=== PATIENT | male | born 1945 | race Caucasian/White ===

== ENCOUNTER 2019-12-02 10:55 | Emergency (ER) | payer MEDICARE, OTHER ==
[~2019-12-02] VITALS: Ht 170.2 cm; Wt 110.5 kg
[2019-12-02] MEDS ORDERED: ACETAMINOPHEN 500 MG TABLET PO ONE ×4 (11:17→11:30)
--- NOTE | 2019-12-02 11:36 | PHYS DOC ---
Past History Past Medical History: Arthritis, CAD, CHF, COPD, CVA (left side deficit), Diabetes, GERD, High Cholesterol, Hypertension, Renal Disease, UTI Additional Past Medical Histor: Insomnia, Neurogenic bladder, neck injury Past Surgical History: Cervical Fusion Additional Past Surgical Histo: Bilateral shoulder surgery- rotator cuff, cardiac stent Smoking: Quit Greater Than 1 Year Alcohol Use: None Drug Use: None Adult General Chief Complaint Chief Complaint: FEVER HPI HPI 74-year-old male presents via EMS from assisted after being diverted from [facility] with report of cough, shortness of air, and subjective fever/chills 2 days. Patient denies travel. Denies known exposure to sick contacts. Denies any chest pain. Patient does report increased leg swelling. Reports history of supplemental oxygen use which he uses intermittently at 3 L. EMS reports upon arrival patient was hypoxic and required placement of supplemental O2. EMS also reports fever. Patient reports he last took Tylenol at 0400 this morning. Review of Systems Review of Systems Constitutional: Reports subjective fever and chills and malaise Eyes: Denies redness or eye pain HENT: Denies nasal congestion or sore throat Respiratory: Reports cough and shortness of breath Cardiovascular: Denies chest pain or palpitations GI: Denies abdominal pain, nausea, or vomiting : Denies dysuria or hematuria Musculoskeletal: Denies back pain; reports bilateral lower extremity edema Integument: Denies rash or skin lesions Neurologic: Denies headache, focal weakness or sensory changes Complete systems were reviewed and found to be within normal limits, except as documented in this note. Current Medications Current Medications Current Medications Medications (Trade) Dose Ordered Sig/David Start Time Stop Time Status Last Admin Dose Admin Acetaminophen (Tylenol) 500 mg STK-MED ONCE 12/02/19 11:17 12/02/19 11:18 MS Allergies Allergies Allergies Coded Allergies Type Severity Reaction Last Updated Verified No Known Drug Allergies 12/02/19 No Physical Exam Physical Exam Constitutional: Well developed, well nourished, no acute distress, non-toxic appearance HENT: Normocephalic, atraumatic, oropharynx dry Eyes: Conjunctiva normal, no discharge Neck: Normal range of motion, no tenderness, supple Cardiovascular: Heart rate tachycardic, regular rhythm Lungs & Thorax: Bilateral breath sounds diminished at bases, no wheezing Abdomen: Soft, no tenderness Skin: Warm, dry, no erythema, no rash Extremities: No tenderness, ROM intact, 3+ pitting edema BLE Neurologic: Alert and oriented. poor historian, left sided weakness- baseline (hx of neck injury and CVA) Psychologic: Affect normal, judgment normal Current Patient Data Vital Signs Vital Signs Date Time Temp Pulse Resp B/P (MAP) Pulse Ox O2 Delivery O2 Flow Rate FiO2 12/02/19 11:03 102.0 132 20 155/88 (110) 92 Room Air 3.0 EKG EKG @1106 Sinus tachycardia at 126bpm, NO ST elevation, incomplete RBBB, t wave inversion V1-V3 Radiology/Procedures Radiology/Procedures PROCEDURE: PORTABLE CHEST 1V EXAM: Chest, single view. HISTORY: Covid-19 concern COMPARISON: None. FINDINGS: A frontal view of the chest is obtained. There is elevation of the right hemidiaphragm. No infiltrate, pleural effusion or pneumothorax is seen. The heart is normal in size. IMPRESSION: Elevation of the right hemidiaphragm. Electronically signed by: Teresa Llanos MD (12/02/2019 11:36 AM) [facility] Course & Med Decision Making Course & Med Decision Making Pertinent Labs and Imaging studies reviewed. (See chart for details) Patient presents via EMS from assisted with report of shortness of breath with associated cough and fever. Given symptoms, concern for COVID-19. Patient placed in negative pressure room and PPE precautions utilized including N95 mask, face shield, yellow gown, foot covers, and double gloves. Febrile upon arrival. Fever addressed. EKG with sinus tachycardia. Labs obtained and posted to chart. WBC 14.6. Lactic acid WNL. BUN/Creat elevated to 53/2.1. Troponin elevated at 0.431. D-dimer significantly elevated at 15.5. Unable to obtain CTA chest with BUN/Creat level. ASA given. Heparin bolus/gtt initiated for possible PE (and cardiac issue). Rapid strep positive. UA with significant infection. Rapid influenza negative. Patient with drop in blood pressure. IVF hydration given with stabilization. Patient clinically looks dry despite BNP ~2900. COVID-19 pending. Empiric antibiotics given with Rocephin and Azithromycin. SIRS positive with tachycardia and elevated WBC. Source of infection with strep and UTI. Patient also hypotensive. Patient given initial 1 liter NS and was running 2nd liter at 100ml/hr. Patient continued to be hypotensive after initial liter. Order for patient to change 100ml/hr NS to bolus for additional liter. Based on IBW patient would require total of 2L for 30ml/hr based on IBW. Patient therefore mets criteria for Severe Sepsis. CXR without acute infiltration. Right hemidiaphragm elevated. Of note: patient was reported to have had a hospice consultation. It is unclear why and patient is unaware. Per [facility] paperwork patient is full code and not paperwork regarding hospice reported by RN at [facility]. Daughter (in [place]) reports that patient was put on hospice after recent cardiac stent placement (3 weeks ago) to get increased nursing help. Patient requiring critical care admission for further evaluation and treatment. Discussed with Dr. Mckeon (hospitalist) who reports no ICU capability at this time. Concern for respiratory and cardiac issues. Recommends transfer to [facility]. Discussed case with Dr. Melendrez (hospitalist) at [facility], who is in agreement with transfer for admission to CVC unit. Discussed findings and plan with patient, who acknowledges understanding and agreement. 1445- Patient dropped pressure despite fluid bolusing of 30ml/hr based on IBW (2L) and fluid from antibiotics. Patient with hx of CHF. Concern for further bolusing. Levophed therefore started. Patient now mets criteria for Septic Shock. Notified nursing poly area supervisor to notify [facility] regarding change of condition. (requiring levophed gtt). Dragon Disclaimer Dragon Disclaimer This electronic medical record was generated, in whole or in part, using a voice recognition dictation system. Departure Departure: Impression: Primary Impression: Septic shock Additional Impressions: Shortness of breath Fever Suspected COVID-19 virus infection Hypoxia Elevated troponin Strep pharyngitis UTI (urinary tract infection) Elevated d-dimer Hypotension Renal insufficiency Disposition: 05 TRANSFER OTHER ([facility]- Dr. Melendrez (hospitalist) accepting) Condition: GUARDED Referrals: PCP,BULL (PCP) Critical Care Time Critical care time was 30 minutes which includes time at bedside, spent in discussion of patient's care with specialists and/or family members, with interpretation of laboratory and/or radiological studies and is exclusive of procedures. Sepsis Assessment Date and Time of Assessment Date: Dec 02, 2019 Time: 13:55 Fluid Challenge: Is the fluid challenge complet: No IBW Target Volume Used: Yes BMI > 30: Yes Vital Signs Vital Signs Vital Signs Date Time Temp Pulse Resp B/P (MAP) Pulse Ox O2 Delivery O2 Flow Rate FiO2 12/02/19 13:07 111 20 93/50 (64) 99 Nasal Cannula 3.0 12/02/19 12:45 100.0 Temperature Source: Oral Respirations Respiratory Effort: Normal Respiratory Pattern: Normal Cardiovascular Pulse Rhythm: Irregular (Tachycardia at 106bpm) Heart: S1 and S2 normal Lung Sounds Breath Sounds: Diminished Capillary Refill Capillary Refill: Rt Hand < 3 seconds Peripheral Pulse Pulse Location: Radial Pulse Strength: Normal (2+) Pulse Assessment Method: Palpation Integumentary Skin: Warm, Dry Skin Moisture: Dry Skin Turgor: Normal Skin Color: warm, dry, edema (BLE) Fingernail Color: WNL Problem Qualifiers Additional Impressions: Fever Fever type: unspecified Qualified Codes: R50.9 - Fever, unspecified UTI (urinary tract infection) Urinary tract infection type: acute cystitis Hematuria presence: without hematuria Qualified Codes: N30.00 - Acute cystitis without hematuria Hypotension Hypotension type: unspecified hypotension type Qualified Codes: I95.9 - Hypotension, unspecified TREVINOANDRE DO Dec 02, 2019 11:36
--- NOTE | 2019-12-02 11:39 | RAD ---
EXAM: Chest, single view. HISTORY: Covid-19 positive. COMPARISON: None. FINDINGS: A frontal view of the chest is obtained. There is elevation of the right hemidiaphragm. No infiltrate, pleural effusion or pneumothorax is seen. The heart is normal in size. IMPRESSION: Elevation of the right hemidiaphragm. Electronically signed by: Teresa Llanos MD (12/02/2019 11:36 AM) [facility]
[2019-12-02] MEDS ORDERED: AZITHROMYCIN 500 MG in IV NORMAL SALINE 250ML 250 ML IV ONE (11:45)
[2019-12-02] MEDS ORDERED: IV NORMAL SALINE 1,000ML 1,000 ML IV ONE ×2 (11:45→13:00)
[2019-12-02 11:53] LABS: BASO % 0 % (0-3); EOS % 0 % (0-3); HEMATOCRIT 32.2 % (39.0-53.0); HEMOGLOBIN 9.6 g/dL (13.0-17.5); LYMPH # 1.3 x10^3/uL (1.0-4.8); LYMPH % 9 % (24-48); MEAN CORPUSCULAR HEMOGLOBIN 27 pg (25-35); MEAN CORPUSCULAR HGB CONC 30 g/dL (31-37); MEAN CORPUSCULAR VOLUME 89 fL (79-100); MONO # 1.2 x10^3/uL (0.0-1.1); MONO % 8 % (0-9); NEUT % 83 % (31-73); PLATELET COUNT 237 x10^3/uL (140-400); RED BLOOD COUNT 3.62 x10^6/uL (4.30-5.70); RED CELL DISTRIBUTION WIDTH 18.2 % (11.5-14.5); WHITE BLOOD COUNT 14.5 x10^3/uL (4.0-11.0)
[2019-12-02 12:00] LABS: CALCIUM 8.3 mg/dL (8.5-10.1); CREATININE 2.1 mg/dL (0.7-1.3); GFR 31.1; POTASSIUM 4.8 mmol/L (3.5-5.1)
[2019-12-02] MEDS ORDERED: ASPIRIN CHEWABLE 81 MG TABLET. ONE (12:13)
[2019-12-02 12:14] LABS: INFLUENZA A PATIENT NEGATIVE (NEGATIVE); INFLUENZA B PATIENT NEGATIVE (NEGATIVE)
[2019-12-02 12:15] LABS: ALBUMIN 2.1 g/dL (3.4-5.0); ALBUMIN/GLOBULIN RATIO 0.5 (1.0-1.7); MAGNESIUM 2.1 mg/dL (1.8-2.4); TOTAL BILIRUBIN 0.4 mg/dL (0.2-1.0); TOTAL PROTEIN 6.3 g/dL (6.4-8.2)
[2019-12-02] MEDS ORDERED: ASPIRIN 325 MG TABLET PO ONE (12:15)
[2019-12-02] MEDS ORDERED: ASPIRIN CHEWABLE 81 MG TABLET. PO ONE (12:15)
[2019-12-02 12:21] LABS: BACTERIA,URINE MOD /HPF (0-FEW); BILIRUBIN,URINE NEG (NEG); CLARITY,URINE TURBID; COLOR,URINE YELLOW; GLUCOSE,URINE NEG (NEG); NITRITE,URINE POS (NEG); SQUAMOUS EPITHELIAL CELL,UR OCC /LPF; UROBILINOGEN,URINE 0.2 mg/dL (0.2 mg/dL); WBC,URINE >40 /HPF (0-4)
[2019-12-02] MEDS ORDERED: HEPARIN 25,000UTS/250ML PREMIX 250 ML IV SCH (12:45)
[2019-12-02] MEDS ORDERED: HEPARIN for IV BOLUS 10,000 UNIT/10 ML VIAL. IV ONE (12:45)
[2019-12-02] MEDS ORDERED: HEPARIN 25,000UTS/250ML PREMIX 250 ML IV PRN (12:45)
[2019-12-02] MEDS ORDERED: HEPARIN for IV BOLUS 10,000 UNIT/10 ML VIAL. ONE (12:46)
[2019-12-02] MEDS ORDERED: HEPARIN 25,000UTS/250ML PREMIX 250 ML IV ONE (12:46)
[2019-12-02] MEDS ORDERED: HEPARIN for IV BOLUS 10,000 UNIT/10 ML VIAL. IV PRN ×3 (14:30)
[2019-12-02 14:35] LABS: % LYMPHS 5 % (24-48); % MONOS 10 % (0-10); % SEGS 85 % (35-66)
[2019-12-02 14:36] LABS: PLT ESTIMATE ADEQUATE (ADEQUATE)
[2019-12-02] MEDS ORDERED: NOREPINEPHRINE BITARTRATE 8 MG in IV DEXTROSE 5% 250 ML IV PRN (15:00)
[2019-12-02 17:19] VITALS: BP 121/54
--- NOTE | 2019-12-05 10:55 | EKG ---
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
== END 2019-12-02 18:10 | disposition short-term general hospital (02) ==
LOC: ER 10:55
DX: A41.9 Sepsis, unspecified organism (principal); R65.21 Severe sepsis with septic shock; Z03.818 Encounter for observation for suspected exposure to other biological agents ruled out; R79.89 Other specified abnormal findings of blood chemistry; J02.0 Streptococcal pharyngitis; N39.0 Urinary tract infection, site not specified; I95.9 Hypotension, unspecified; N28.9 Disorder of kidney and ureter, unspecified; B95.0 Streptococcus, group A, as the cause of diseases classified elsewhere; M19.90 Unspecified osteoarthritis, unspecified site; I25.10 Atherosclerotic heart disease of native coronary artery without angina pectoris; J44.9 Chronic obstructive pulmonary disease, unspecified; E11.9 Type 2 diabetes mellitus without complications; K21.9 Gastro-esophageal reflux disease without esophagitis; E78.00 Pure hypercholesterolemia, unspecified; I11.0 Hypertensive heart disease with heart failure; I50.9 Heart failure, unspecified; Z87.440 Personal history of urinary (tract) infections; Z87.891 Personal history of nicotine dependence
CPT/HCPCS: 36415; 51702; 71045; 80053; 81001; 82553; 83605; 83615; 83690; 83735; 83880; 84145; 84484; 85007; 85025; 85379; 85610; 85730; 87040; 87077; 87086; 87186; 87205; 87635; 87804; 87880; 93005; 96365; 96366; 96367; 96368; 96376; 99291; J0456; J0696; J1644; J7050; J7030

== ENCOUNTER 2020-01-30 09:19 | Inpatient (IN) | payer MEDICARE, OTHER ==
[~2020-01-30] VITALS: Ht 182.9 cm; Wt 112.2 kg
[2020-01-30] MEDS ORDERED: cefTRIAXone SODIUM 1 GM VIAL ONE (09:42)
[2020-01-30] MEDS ORDERED: IV NORMAL SALINE 50ML 50 ML ONE (09:42)
[2020-01-30 09:51] LABS: BGAS PH 7.34 (7.35-7.46)
[2020-01-30 10:30] LABS: BASO % 1 % (0-3); EOS % 0 % (0-3); MEAN CORPUSCULAR HEMOGLOBIN 24 pg (25-35); MEAN CORPUSCULAR HGB CONC 29 g/dL (31-37); MONO # 0.7 x10^3/uL (0.0-1.1); MONO % 11 % (0-9); RED CELL DISTRIBUTION WIDTH 19.5 % (11.5-14.5); WHITE BLOOD COUNT 6.4 x10^3/uL (4.0-11.0)
[2020-01-30 10:43] LABS: CALCIUM 9.5 mg/dL (8.5-10.1); CREATININE 2.3 mg/dL (0.7-1.3); POTASSIUM 5.6 mmol/L (3.5-5.1)
[2020-01-30 10:49] LABS: ALBUMIN 2.6 g/dL (3.4-5.0); ALBUMIN/GLOBULIN RATIO 0.5 (1.0-1.7); C REACTIVE PROTEIN 26.5 mg/L (0-3.3); TOTAL BILIRUBIN 0.1 mg/dL (0.2-1.0); TOTAL PROTEIN 7.6 g/dL (6.4-8.2)
--- NOTE | 2020-01-30 11:21 | RAD ---
INDICATION: Reason: sepsis / Spl. Instructions: / History: COMPARISON: December 02, 2019 FINDINGS: Single view of chest obtained. Hypoexpanded exam with elevation of the right hemidiaphragm again seen. Some limitation at the left lung base secondary to the overlying cardiac silhouette obscuring but no new region of consolidation in visualized portions of the lungs. IMPRESSION: * Similar exam compared to prior with repeat demonstration of elevated right hemidiaphragm. Electronically signed by: Edwardo Quevedo MD (01/30/2020 11:18 AM) [id number]
[2020-01-30] MEDS ORDERED: ALBUTEROL SULFATE 2.5 MG/3 ML NEBU. NEB ONE (11:45)
[2020-01-30] MEDS ORDERED: FUROSEMIDE 40 MG/4 ML VIAL IVP ONE (11:45)
--- NOTE | 2020-01-30 12:05 | PHYS DOC ---
Past History Past Medical History: Arthritis, CAD, CHF, COPD, CVA, Diabetes, GERD, High Cholesterol, Hypertension, Renal Disease, UTI Additional Past Medical Histor: Insomnia, Neurogenic bladder, neck injury Past Surgical History: Cervical Fusion Additional Past Surgical Histo: Bilateral shoulder surgery- rotator cuff, cardiac stent Smoking: Quit Greater Than 1 Year Alcohol Use: None Drug Use: None Adult General Chief Complaint Chief Complaint: ALTERED MENTAL STATUS HPI HPI Patient is a 74 year old male who presents with altered mental status. Report from skilled nursing is that at 7 AM this morning they tried to wake the patient up and he was very lethargic and difficult to wake. They then sent him here. Reportedly he was okay yesterday. There has been coronavirus cases at his nursing facility. He is supposed to be on oxygen all the time, however it is unclear at this time why. Patient is unable to provide any history. Review of Systems Review of Systems Unable to obtain due to altered mental status Current Medications Current Medications Current Medications Medications (Trade) Dose Ordered Sig/David Start Time Stop Time Status Last Admin Dose Admin Albuterol Sulfate (Ventolin) 2.5 mg 1X ONCE 01/30/20 11:45 01/30/20 11:46 DC Ceftriaxone Sodium 1 gm/ Sodium Chloride 50 ml @ 100 mls/hr 1X ONCE 01/30/20 10:25 01/30/20 10:54 DC 01/30/20 10:35 100 MLS/HR Ceftriaxone Sodium (Rocephin) 1 gm STK-MED ONCE 01/30/20 09:42 01/30/20 09:42 DC Furosemide (Lasix) 40 mg 1X ONCE 01/30/20 11:45 01/30/20 11:46 DC Sodium Chloride 50 ml @ As Directed STK-MED ONCE 01/30/20 09:42 01/30/20 09:42 DC Allergies Allergies Allergies Coded Allergies Type Severity Reaction Last Updated Verified No Known Drug Allergies 01/30/20 No Physical Exam Physical Exam Constitutional: Well developed, well nourished, lethargic, ill-appearing HEENT: Normocephalic, atraumatic, oropharynx moist, EOMI, PERRL, no drainage from eyes, normal conjunctiva Neck: Supple, normal range of motion, no stridor Cardiovascular: Tachycardic, 2+ radial pulses bilaterally, bilateral lower edema Respiratory: Decreased breath sounds bilaterally, shallow breathing, diffuse crackles Abdomen: Soft, nontender, nondistended, no masses Skin: Warm, dry, intact Extremities: No obvious deformities Neurologic: GCS 9, limited motion of all 4 extremities, response to pain in all 4 extremities Current Patient Data Vital Signs Vital Signs Date Time Temp Pulse Resp B/P (MAP) Pulse Ox O2 Delivery O2 Flow Rate FiO2 01/30/20 11:00 99 15 160/83 (108) 99 Nasal Cannula 2.0 01/30/20 09:20 99.2 Lab Results Laboratory Tests Test 01/30/20 09:27 01/30/20 09:37 01/30/20 10:00 Glucose (Fingerstick) 137 mg/dL (70-99) H Blood pH 7.34 (7.35-7.46) L Blood Gas PCO2 62 mmHg (35-46) *H Blood Gas PO2 92 mmHg (71-100) Blood Gas HCO3 33 mmol/L (21-28) H Arterial Bld O2 Saturation (Calc) 96 % (92-99) FiO2 28 % White Blood Count 6.4 x10^3/uL (4.0-11.0) Red Blood Count 4.00 x10^6/uL (4.30-5.70) L Hemoglobin 9.6 g/dL (13.0-17.5) L Hematocrit 32.8 % (39.0-53.0) L Mean Corpuscular Volume 82 fL (79-100) Mean Corpuscular Hemoglobin 24 pg (25-35) L Mean Corpuscular Hemoglobin Concent 29 g/dL (31-37) L Red Cell Distribution Width 19.5 % (11.5-14.5) H Platelet Count 357 x10^3/uL (140-400) Neutrophils (%) (Auto) 68 % (31-73) Lymphocytes (%) (Auto) 20 % (24-48) L Monocytes (%) (Auto) 11 % (0-9) H Eosinophils (%) (Auto) 0 % (0-3) Basophils (%) (Auto) 1 % (0-3) Neutrophils # (Auto) 4.4 x10^3uL (1.8-7.7) Lymphocytes # (Auto) 1.3 x10^3/uL (1.0-4.8) Monocytes # (Auto) 0.7 x10^3/uL (0.0-1.1) Eosinophils # (Auto) 0.0 x10^3/uL (0.0-0.7) Basophils # (Auto) 0.0 x10^3/uL (0.0-0.2) Sodium Level 138 mmol/L (136-145) Potassium Level 5.6 mmol/L (3.5-5.1) H Chloride Level 103 mmol/L (98-107) Carbon Dioxide Level 31 mmol/L (21-32) Anion Gap 4 (6-14) L Blood Urea Nitrogen 34 mg/dL (8-26) H Creatinine 2.3 mg/dL (0.7-1.3) H Estimated GFR (Cockcroft-Gault) 28.0 BUN/Creatinine Ratio 15 (6-20) Glucose Level 125 mg/dL (70-99) H Calcium Level 9.5 mg/dL (8.5-10.1) Total Bilirubin 0.1 mg/dL (0.2-1.0) L Aspartate Amino Transferase (AST) 71 U/L (15-37) H Alanine Aminotransferase (ALT) 49 U/L (16-63) Alkaline Phosphatase 165 U/L (46-116) H Lactate Dehydrogenase 327 U/L (85-227) H Creatine Kinase 213 U/L (39-308) Troponin I Quantitative 1.910 ng/mL (0-0.055) H C-Reactive Protein 26.5 mg/L (0-3.3) H IL-Hqs-T-Type Natriuretic Peptide 1980 pg/mL (0-124) H Total Protein 7.6 g/dL (6.4-8.2) Albumin 2.6 g/dL (3.4-5.0) L Albumin/Globulin Ratio 0.5 (1.0-1.7) L EKG EKG [] Radiology/Procedures Radiology/Procedures [] Course & Med Decision Making Course & Med Decision Making Pertinent Labs and Imaging studies reviewed. (See chart for details) Patient is 74-year-old male who presents to the emergency room with altered m ental status. Upon arrival to the emergency room patient was a GCS of 9. ABG was done which shows a PCO2 of 62 suggesting retention. This is likely secondary to patient not taking deep breaths. There is no report that the patient was given any medications this morning that would make him lethargic. Patient does have thick sputum production which could be related to pneumonia. It is also possible that he may have heart failure. Code sepsis work-up was ordered. Patient was a very difficult stick and despite multiple attempts to get blood, blood cultures could not be obtained. Patient became more awake and started to refuse any further sticks. He also refused a straight cath. He refused to wear BiPAP. He intermittently refused to wear oxygen. He is confused at this time and is unable to make full decisions. He does not know where he is and what year it is, but is unable to tell us what is going on at this time. Patient has an elevated troponin. EKG does not show a STEMI. He does have some PVCs, T wave inversions diffusely, and an incomplete right bundle branch block fluids will be withheld at this time. He will be given Rocephin and Lasix. I discussed the case with Dr. Pack who will admit the patient. Dragon Disclaimer Dragon Disclaimer This electronic medical record was generated, in whole or in part, using a voice recognition dictation system. Departure Departure: Impression: Primary Impression: Hypercapnic respiratory failure Additional Impressions: Elevated troponin Altered mental status Disposition: ADMITTED INPATIENT Condition: STABLE Referrals: JOANNA BACA (PCP) Problem Qualifiers MARKUS MELTON MD Jan 30, 2020 12:05
--- NOTE | 2020-01-30 12:44 | EKG ---
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
[2020-01-30 13:19] VITALS: BP 130/65
[2020-01-30 13:48] VITALS: BP 105/50
[2020-01-30] MEDS ORDERED: ACET325T21 PO (13:50)
[2020-01-30] MEDS ORDERED: BUDE10.22 IH (13:50)
[2020-01-30] MEDS ORDERED: POLY2500 PO (13:50)
[2020-01-30] MEDS ORDERED: TAMS0.4C97 PO (13:50)
[2020-01-30] MEDS ORDERED: OXYC-325 PO ×2 (13:50)
[2020-01-30] MEDS ORDERED: BISA10SU4 RC (13:50)
[2020-01-30] MEDS ORDERED: APIX5TAB3 PO (13:50)
[2020-01-30] MEDS ORDERED: KETO120S4 TP (13:50)
[2020-01-30] MEDS ORDERED: BACL10TA PO (13:50)
[2020-01-30] MEDS ORDERED: GUAI-519 PO (13:50)
[2020-01-30] MEDS ORDERED: METO50TA6 PO (13:50)
[2020-01-30] MEDS ORDERED: PATI8.4P PO (13:50)
[2020-01-30] MEDS ORDERED: FURO80TA72 PO (13:50)
[2020-01-30] MEDS ORDERED: VITA1TAB31 PO (13:50)
[2020-01-30] MEDS ORDERED: INSU100V13 SQ (13:50)
[2020-01-30] MEDS ORDERED: INSU100I17 SQ (13:50)
[2020-01-30] MEDS ORDERED: DILT180C2 PO (13:50)
[2020-01-30] MEDS ORDERED: LIDO1ADH44 TP (13:50)
[2020-01-30] MEDS ORDERED: ALBU2.5V8 IH (13:50)
[2020-01-30] MEDS ORDERED: SIME80TA14 PO (13:50)
[2020-01-30] MEDS ORDERED: LIDO700A21 TP (13:50)
[2020-01-30] MEDS ORDERED: DICL100G28 TP (13:50)
[2020-01-30] MEDS ORDERED: MELA3TAB4 PO (13:50)
[2020-01-30] MEDS ORDERED: DOCU100C28 PO (13:50)
[2020-01-30] MEDS ORDERED: ATOR20TA58 PO (13:50)
[2020-01-30] MEDS ORDERED: ASPI-630 PO (13:50)
[2020-01-30] MEDS ORDERED: CETI10TA16 PO (13:50)
[2020-01-30] MEDS ORDERED: QUET50TA5 PO (13:50)
[2020-01-30] MEDS ORDERED: GABA-586 PO (13:50)
[2020-01-30 14:45] VITALS: BP 147/69
[2020-01-30] MEDS ORDERED: CALCIUM GLUCONATE 1,000 MG in IV NORMAL SALINE 100ML 100 ML IV ONE (15:15)
[2020-01-30] MEDS ORDERED: DEXTROSE 50% 25 GM / 50ML DISP.SYRIN. IV PRN (15:15)
[2020-01-30] MEDS ORDERED: INSULIN LISPRO 300 UNITS/3 ML VIAL. SQ PRN (15:15)
[2020-01-30] MEDS ORDERED: IV DEXTROSE 5 %-0.2 % NACL 1,000 ML IV SCH (15:15)
[2020-01-30] MEDS ORDERED: SODIUM BICARB ADULT 8.4% 50 MEQ/50 ML DISP.SYRIN. IV ONE (15:15)
--- NOTE | 2020-01-30 16:00 | RAD ---
CT CHEST WO CONTRAST INDICATION: Reason: ALTERED MENTAL STATUS, SEPSIS / Spl. Instructions: / History: . COMPARISON STUDY: Radiograph 01/30/2020. TECHNIQUE: Unenhanced axial images were obtained through the lungs and upper abdomen. Coronal and sagittal multiplanar reconstructions were also obtained. RS compliance statement: One or more of the following individualized dose reduction techniques were utilized for this examination: 1. Automated exposure control 2. Adjustment of the mA and/or kV according to patient size 3. Use of iterative reconstruction technique FINDINGS: Lungs and Airways: Asymmetric elevation of the right hemidiaphragm. Right basilar relaxation atelectasis. Bibasilar dependent and subsegmental atelectasis. Normal central airways. Pleura: The pleural spaces are normal. Heart and Mediastinum: The visualized thyroid gland is normal in size and attenuation. No axillary or supraclavicular lymphadenopathy. No mediastinal, hilar or retrocrural lymphadenopathy. Cardiomegaly. Coronary artery atherosclerotic disease. No pericardial effusion. Atherosclerosis of the thoracic aorta. Abdomen: The visualized abdominal organs demonstrate no abnormality. Bones and Soft Tissues: Degenerative changes of the spine. IMPRESSION: No pulmonary mass or consolidation. No thoracic lymphadenopathy. Electronically signed by: Amado Guillermo MD (01/30/2020 3:57 PM) [facility]
--- NOTE | 2020-01-30 16:00 | RAD ---
PQRS Compliance Statement: One or more of the following individualized dose reduction techniques were utilized for this examination: 1. Automated exposure control 2. Adjustment of the mA and/or kV according to patient size 3. Use of iterative reconstruction technique CT head without contrast 01/30/2020 2:36 PM INDICATION: Altered mental status COMPARISON: None available TECHNIQUE: Multiple axial CT images of the head were obtained from skull base through the vertex without intravenous contrast. FINDINGS: Head: Ventricles, sulci and basal cisterns are prominent compatible with mild generalized cerebral volume loss.. Low-attenuation in the periventricular white matter is suggestive of chronic small vessel ischemic changes. There is no hydrocephalus. Quach-white matter differentiation is normal. There is no acute intracranial hemorrhage. There is no mass, mass effect or midline shift. Posterior fossa is normal in appearance. Chronic appearing prominence of the bifrontal extra-axial spaces. Visualized portions of the orbits are normal. Air-fluid level is noted in the sphenoid sinus. Mastoid air cells are well aerated. Scalp and calvaria are normal. IMPRESSION: No acute intracranial hemorrhage. Air-fluid level in the sphenoid sinus are present acute inflammatory changes associated with sinusitis. Mild general cerebral volume loss. Low-attenuation in the periventricular white matter is suggestive of chronic small vessel ischemic changes. Electronically signed by: Carmen Ohara MD (01/30/2020 3:57 PM) [id number]
[2020-01-30 16:32] LABS: TOTAL BILIRUBIN 0.1 mg/dL (0.2-1.0)
[2020-01-30 16:57] VITALS: BP 145/74
[2020-01-30 16:58] LABS: HEMATOCRIT 29.9 % (39.0-53.0); HEMOGLOBIN 8.8 g/dL (13.0-17.5); LYMPH % 31 % (24-48); MEAN CORPUSCULAR VOLUME 81 fL (79-100); NEUT % 57 % (31-73); PLATELET COUNT 342 x10^3/uL (140-400); RED BLOOD COUNT 3.68 x10^6/uL (4.30-5.70)
[2020-01-30 16:59] LABS: BASO # 0.1 x10^3/uL (0.0-0.2); NEUT # 3.7 x10^3uL (1.8-7.7)
[2020-01-30 17:05] LABS: CALCIUM 9.1 mg/dL (8.5-10.1); CREATININE 2.3 mg/dL (0.7-1.3); POTASSIUM 5.2 mmol/L (3.5-5.1)
[2020-01-30 17:10] LABS: ALBUMIN 2.5 g/dL (3.4-5.0); ALBUMIN/GLOBULIN RATIO 0.6 (1.0-1.7)
[2020-01-30] MEDS ORDERED: PIPERACILLIN/TAZOBACTAM 2.25 GM in IV NORMAL SALINE 50ML 50 ML IV SCH (18:00)
--- NOTE | 2020-01-30 18:22 | HP ---
ADMIT DATE: 01/30/2020 HISTORY OF PRESENT ILLNESS: The patient is a 74-year-old -[employer] male patient, a resident at [facility], who was brought to the Emergency Room of [facility] with altered mental status. As per senior living staff, they have tried to wake him up at 7:00 in the morning, but the patient was very lethargic and difficult to wake up. Therefore, they sent him to the Emergency Room. Reportedly, the patient was okay yesterday. There has been coronavirus cases at this nursing facility. He is supposed to be on oxygen all the time; however, it is unclear at this time why the patient is unable to provide any history. He was evaluated in the Emergency Room and has had lab work including a CBC, a comprehensive metabolic profile, which showed that he has acute on chronic kidney injury, hyperkalemia. His BNP was high at 1980. His first troponin was 1.910. His blood gases showed that he has acute hypercapnic respiratory failure. He had a chest x-ray, which showed that the patient has hyperexpanded exam with elevation of the right hemidiaphragm again seen, some limitation at the left lung base secondary to overlying cardiac silhouette obscuring, but no new region of consolidation in the visualized portion of the left lung. The patient was treated with IV Lasix, ceftriaxone and was admitted for further evaluation and treatment. The patient was unresponsive when I saw him and was clearly very congested; however, he did not tolerate BiPAP machine and he has also a mouth breather, does not tolerate oxygen by nasal cannula or by Ventimask. PAST MEDICAL HISTORY: Significant for apparently a history of acute on chronic respiratory failure with hypoxia and hypercapnia. He has a history of urinary tract infection, dysphagia. He has type 2 diabetes mellitus with hyperglycemia, for which he is on insulin, chronic diastolic congestive heart failure, chronic kidney disease, generalized edema, quadriplegia that is incomplete at C1-C4. He has hyperlipidemia, chronic pain syndrome, hypertension, gastroesophageal reflux disease, chronic constipation, neurogenic bowel and osteoarthritis. He is also known to have cervical spine stenosis, generalized muscle weakness and he has also rotator cuff tear on both right and left shoulder, neuromuscular dysfunction of bladder and enlarged prostate, abnormal gait and mobility and unspecified injury at C3 level of the cervical spinal cord. He has recent history of psychotic disorder with delusion due to known physiological condition and lack of coordination. PAST SURGICAL HISTORY: Significant for cervical spine fusion, has also bilateral rotator cuff surgery and coronary artery disease, status post stent deployment. FAMILY HISTORY: Unobtainable. SOCIAL HISTORY: He is currently a senior living resident. He apparently quit smoking a year ago. Does not drink alcohol or use recreational drugs. REVIEW OF SYSTEMS: Unobtainable. PHYSICAL EXAMINATION: GENERAL: When I saw him this afternoon, he was resting slightly propped up in bed, in no apparent respiratory distress. He was pale, but no jaundice, cyanosis or thyromegaly. No jugular venous distention. Generalized anasarca. VITAL SIGNS: His heart rate was 90, blood pressure was 105/50, temperature was 98.9, respiratory rate was 20, and oxygen saturation was 99% on 6 liters of oxygen. HEAD, EYES, EARS, NOSE AND THROAT: Showed normocephalic, atraumatic. NECK: Supple. HEART: Showed normal first and second heart sounds. No gallop or murmur. CHEST: Showed central trachea, equal bilateral expansion, air entry expands with crepitation bilaterally posteriorly. ABDOMEN: Distended, soft, nontender. NEUROLOGIC: He is encephalopathic, does not open his eyes spontaneously nor does he respond to verbal or painful stimuli. LABORATORY DATA: His lab work when I saw him showed a white cell count of 6400, hemoglobin 9.6, hematocrit 32, MCV 82 and platelet count of 357,000. Serum sodium was 138, potassium 5.6, chloride 103, bicarbonate 31, anion gap of 4, BUN 34, creatinine 2.3, estimated GFR was 28 mL per minute, his glucose 125, calcium was 9.5. Total bilirubin is normal as well as ALT. AST and alkaline phosphatase were slightly elevated. LDH was 327. CK was 213. Troponin was 1.910 and C-reactive protein was 26.5. B natriuretic peptide was 1980. Total protein was 7.6, albumin 2.6. His blood gases showed a pH of 7.34, pCO2 of 62, pO2 of 92, bicarbonate 33 and oxygen saturation was 96% on FiO2 of 28%. His chest x-ray showed that the patient has hyperexpanded exam with elevation of the right hemidiaphragm again seen, some limitation at the left lung base secondary to overlying cardiac silhouette that was obscuring, but no new region of consolidation in the visualized portions of the lungs. In summary, this is a 74-year-old -[employer] male patient who was admitted with altered mental status. Initial exam showed that he has hypercapnic respiratory failure, altered mental status, hyperkalemia, acute on chronic kidney injury, the patient ____ the BiPAP. He has also a mouth breather, although his oxygenation is good. He continued to be very congested and I do not have really reason for why he is unresponsive. He is currently on following medications at [facility]. He is on Levemir 20 units 2 times a day. He is on Lidoderm patch to the left upper extremity, shoulder topically on for 12 hours and off for 12 hours. He is on melatonin 3 mg, he takes 2 tablets by mouth ____ at bedtime. He is on metoprolol tartrate 50 mg twice a day. He is on Mylanta 30 mL by mouth every 12 hours. He is on NovoLog FlexPen, he takes 12 units before meals. He is on NovoLog, ____ sliding scale. He is also on Cardizem CD extended release, he takes 180 mg once a day and cetirizine 10 mg once a day, diclofenac sodium gel 1% apply 4 grams transdermally every 8 hours. He is on Colace 100 mg twice a day, gabapentin 600 mg 3 times a day, Cheratussin syrup (guaifenesin) 10 mL every 4 hours, glucose gel 15 grams 1 vial by mouth every 4 hours as needed, ketoconazole shampoo 2% applied to scalp topically one time a day every Tuesday, , Tuesday. He is on Lasix 80 mg 1 tablet by mouth one time a day related to acute diastolic congestive heart failure. He is on oxycodone/acetaminophen 5/325 one tablet by mouth at bedtime. He is also on oxycodone/APAP every 6 hours. He is also on polyethylene glycol 17 grams once a day, Seroquel 50 mg 1 tablet at bedtime. He is also on simethicone 80 mg 1 tablet by mouth 4 times a day, tamsulosin 0.4 mg 1 capsule by mouth 1 time a day and he is on Veltassa packet 8.4 grams 1 packet by mouth 2 times a day for hyperkalemia. He is also on vitamin D, ergocalciferol 3000 units once a day. In summary, this is a 74-year-old -[employer] [facility] male patient who was admitted with altered mental status, the cause of which is not very clear. The patient is on Levemir insulin. He takes also NovoLog insulin. He is also on oxycodone. PLAN: We will arrange for him to have a CT scan of the head without contrast, CT scan of the chest without contrast. We will repeat all his lab work again this afternoon and we will decide on further management according to the findings. LUIS CARVER MD DR: LEILANI/wendy JOB#: [id number] / [id number]
[2020-01-30] MEDS ORDERED: ASPIRIN CHEWABLE 81 MG TABLET. PO ONE (18:45)
[2020-01-30 19:30] VITALS: BP 141/71
== END 2020-01-30 19:40 | disposition short-term general hospital (02) | DRG 280 ==
LOC: ER 09:19 → 1 SOUTH 11:40 → ER 12:15 → 1 SOUTH 12:43
PROVIDERS: ADMIT Internal Medicine; ATTEND Internal Medicine
DX: I13.0 Hypertensive heart and chronic kidney disease with heart failure and stage 1 through stage 4 chronic kidney disease, or unspecified chronic kidney disease (principal); G93.41 Metabolic encephalopathy; I21.4 Non-ST elevation (NSTEMI) myocardial infarction; J96.02 Acute respiratory failure with hypercapnia; G82.50 Quadriplegia, unspecified; I50.33 Acute on chronic diastolic (congestive) heart failure; N17.9 Acute kidney failure, unspecified; I25.10 Atherosclerotic heart disease of native coronary artery without angina pectoris; J44.9 Chronic obstructive pulmonary disease, unspecified; E11.22 Type 2 diabetes mellitus with diabetic chronic kidney disease; E78.00 Pure hypercholesterolemia, unspecified; N18.9 Chronic kidney disease, unspecified; E78.5 Hyperlipidemia, unspecified; E87.5 Hyperkalemia; G89.4 Chronic pain syndrome; N40.0 Benign prostatic hyperplasia without lower urinary tract symptoms; Z20.828 Contact with and (suspected) exposure to other viral communicable diseases; Z99.81 Dependence on supplemental oxygen; Z98.1 Arthrodesis status; Z95.5 Presence of coronary angioplasty implant and graft; Z87.891 Personal history of nicotine dependence; Z87.440 Personal history of urinary (tract) infections; Z86.73 Personal history of transient ischemic attack (TIA), and cerebral infarction without residual deficits
CPT/HCPCS: 36415; 70450; 71045; 71250; 80053; 82550; 82803; 82947; 83605; 83615; 83880; 84145; 84484; 85025; 86140; 87040; 87070; 87205; 87641; 93005; 94640; 96365; 96366; 96375; J0610; J0696; J1815; J1940; J2543; 99285-25; J7613; U0003-CS

== ENCOUNTER 2020-09-01 20:30 | Observation (INO) | payer MEDICARE ==
[~2020-09-01] VITALS: Ht 182.9 cm; Wt 105.0 kg
[~2020-09-01 20:30] MED LIST: ACET325T21 PO; ALBU2.5V8 IH; APIX5TAB3 PO; ASPI-630 PO; ATOR20TA58 PO; BACL10TA PO; BISA10SU4 RC; BUDE10.22 IH; CETI10TA16 PO; DICL100G28 TP; DILT180C2 PO; DOCU100C28 PO; FURO80TA72 PO; GABA-586 PO; GUAI-519 PO; INSU100I17 SQ; INSU100V13 SQ; KETO120S4 TP; LIDO1ADH44 TP; LIDO700A21 TP; MELA3TAB4 PO; METO50TA6 PO; OXYC-325 PO; PATI8.4P PO; POLY2500 PO; QUET50TA5 PO; SIME80TA14 PO; TAMS0.4C97 PO; VITA1TAB31 PO
--- NOTE | 2020-09-01 20:35 | PHYS DOC ---
Past History Past Medical History: Anemia, Arthritis, CAD, CHF, COPD, CVA, Diabetes, GERD, High Cholesterol, Hypertension, Renal Disease, UTI Additional Past Medical Histor: Insomnia, Neurogenic bladder, neck injury Past Surgical History: Cervical Fusion Additional Past Surgical Histo: Bilateral shoulder surgery- rotator cuff, cardiac stent Smoking: Quit Greater Than 1 Year Alcohol Use: None Drug Use: None General Adult HPI: HPI: ".. I don't know... I was asleep... they were rubbing ... my chest... to wake me up... I don't know.... I ve been coughing... more.. just hard to get it up... . I am tired...I don't know...".." Been more weak...".."They said .. I had a fever..." Patient is a 75 year old male who presents with above hx and complaints of CHF, fatigue, weakness,fever, cough with productive sputum, mental status change, per detention. Pt. on chronic oxygen 2 lt when asleep. Patient has been a resident of [facility] since 02-04-2020. Patient's primary at the detention is Dr. Brittni Baca. No recent changes in medications. There are other patients at the detention that have tested COVID +. Patient has had a flu vaccination and Pneumovax. P atient has past medical history of acute on chronic respiratory failure hypoxia and hypercapnia-cause of last admission in 02/15. Patient has history of chronic atelectasis, elevated Rt. diaphragm , chronic constipation, dysphagia, generalized edema, insomnia, muscle weakness, neuro muscular dysfunction of bladder, gait and mobility issues, lack coordination, history of urinary tract infections, quadriplegic from the C1-C4 traumatic injury (-s/p surgical stablization,), spinal stenosis, central cord lesion-trauma, rotator cuff tear and rupture, acute on chronic diastolic congestive heart failure episodes, chronic renal disease stage II, prostate hypertrophic changes, essential hypertension, gastroesophageal reflux, hyperlipidemia, diabetes, neurogenic bowel, osteoarthritis, chronic pain, chronic muscle spasms, psychotic disorder with delusions, seborrheic capitis, diabetes, fusion of spine, CARDz, with stents x 2, and deconditioned. No recent travel. Review of Systems: Review of Systems: Constitutional: History of fever per detention Eyes: Denies change in visual acuity HENT: Denies nasal congestion or sore throat Respiratory: History of cough and shortness of breath Cardiovascular: Denies chest pain or edema GI: Denies abdominal pain, nausea, vomiting, bloody stools or diarrhea. History of chronic constipation : Denies dysuria . History of urinary retention Musculoskeletal: Denies back pain or joint pain . History of glwmjvcjecje-finuzly-xjezidhzf to cervical trauma Integument: Denies rash Neurologic: Denies headache, focal weakness or sensory changes Hx. of mental status change today. Endocrine: Denies polyuria or polydipsia Lymphatic: Denies swollen glands Psychiatric: Denies depression or anxiety Family History: Family History: Noncontributory Current Medications: Current Meds: See nursing for detention meds Allergies: Allergies: Allergies Coded Allergies Type Severity Reaction Last Updated Verified I S O L A T I O N *CONTACT* Allergy Unknown 02/01/20 Yes NKMA Allergy Unknown 02/01/20 Yes Physical Exam: PE: Constitutional: Chronically ill and appearance. [] HENT: Normocephalic, atraumatic, bilateral external ears normal, oropharynx dry, no oral exudates, nose normal. [] Eyes: PERRLA, EOMI, conjunctiva normal, no discharge. [] Neck: Limit ROM, no tenderness, supple, no stridor. [] Old surgery scar. Cardiovascular: Tachycardia heart rate regular rhythm, no murmur [, PMI to the left Lungs & Thorax: Bilateral breath sounds basilar crackles bilaterally on auscultation [] breath sounds on Rt. base Abdomen: Bowel sounds normal, soft, no tenderness, no masses, no pulsatile masses. Obese. Distended Skin: Warm, dry, no erythema, no rash. [] Back: No tenderness, no CVA tenderness. [] Extremities: No tenderness, no cyanosis, no clubbing, quadriplegic weakness chronic, ankle edema. Bilateral shoulder scars- surgery Neurologic: Alert and oriented X 3, partial quadriplegic has some distal sensory function, central cervical cord pattern traumatic injury posturing. Psychologic: Affect anxious , judgement appears impaired, at times confused, mood depressed. EKG: EKG: My interpretation of EKG shows a sinus rhythm at 74 ventricular rate, right bundle branch block, [] Radiology/Procedures: Radiology/Procedures: [address] [address] IMAGING REPORT Signed PATIENT: MARLENY MARTINEZ ACCOUNT: [id number] : 1945 LOCATION: ER AGE: 75 SEX: M EXAM STATUS: REG ER ORD. PHYSICIAN: ARLETH QUEVEDO MD REASON: dyspnea,hypoxia PROCEDURE: PORTABLE CHEST 1V XR CHEST 1V Clinical History: Reason: dyspnea,hypoxia / Spl. Instructions: / History: Technique: AP view of the chest was obtained at 09/01/2020 9:12 PM. Comparison: January 30, 2020. Findings: The cardiomediastinal silhouette is normal. The pulmonary vasculature is normal. The lungs and pleural margins are clear. Elevation the right hemidiaphragm was seen previously. Impression: Stable appearance of the chest. Electronically signed by: Selina Marley III, MD (09/01/2020 10:09 PM) [facility] DICTATED AND SIGNED BY: SELINA MARLEY III, MD DATE: 09/01/202207 CC: ARLETH QUEVEDO MD; BRITTNI BACA ~MTH0 0 [][address] [address] IMAGING REPORT Signed PATIENT: MARLENY MARTINEZ ACCOUNT: [id number] : 1945 LOCATION: ER AGE: 75 SEX: M EXAM STATUS: REG ER ORD. PHYSICIAN: ARLETH QUEVEDO MD REASON: fall, mental status change PROCEDURE: CT HEAD AND CERVICAL SPINE WO CT HEAD AND C-SPINE WO Date: 09/01/2020 9:36 PM Clinical Indication: fall, mental status change, pain Comparison: None. Technique: 5 mm axial tomographic images were obtained of the head without contrast. These were viewed on brain and bone windows. Noncontrast CT of the cervical spine was performed. Sagittal and coronal reformats were performed and evaluated. One or more of the following dose reduction techniques were utilized: Automated exposure control (AEC), Adjustment of mA and/or kV according to patient size, Use of iterative reconstruction technique such as ASiR, CT scan done according to ALARA and image gently/image wisely HEAD FINDINGS: Mild generalized cerebral and cerebellar volume loss. Mild nonspecific periventricular hypoattenuation, most commonly seen with chronic small vessel ischemic disease. No intra- or extra-axial mass or fluid collection. No acute hemorrhage. The ventricles are normal in size, shape, and morphology. The gu-white matter junction is normal. The basilar cisterns are patent. Sphenoid sinus secretions. The visualized portions of the orbits and globes are normal. The mastoid air cells are clear. No aggressive osseous lesion or fracture. CERVICAL SPINE FINDINGS: Postsurgical changes of posterior decompression with posterior instrumentation C3-C6, anterior instrumentation at C3-C5, and interbody spacers at C3-4 and C4-5 Straightening of the cervical lordosis. No acute fracture. No aggressive lytic or blastic osseous lesions. Severe multilevel degenerative disc space height loss. Multilevel spinal canal stenosis secondary to disc protrusions and marginal osteophytes. Multilevel moderate neuroforaminal narrowing secondary to uncovertebral arthrosis. Multilevel moderate to severe facet arthrosis. The thyroid gland is normal. No cervical lymphadenopathy. Bilateral carotid atherosclerosis. The visualized aerodigestive tract is normal. The visualized portions of the lungs are clear. IMPRESSION: 1. No acute intracranial process. 2. No acute cervical spine fracture. Electronically signed by: Brenna Guillermo MD (09/01/2020 10:16 PM) [facility] DICTATED AND SIGNED BY: BRENNA GUILLERMO MD DATE: 09/01/202210 CC: ARLETH QUEVEDO MD; BRITTNI BACA ~MTH0 0 Heart Score: Risk Factors: Risk Factors: DM, Current or recent (<one month) smoker, HTN, HLP, family history of CAD, obesity. Risk Scores: Score 0 - 3: 2.5% MACE over next 6 weeks - Discharge Home Score 4 - 6: 20.3% MACE over next 6 weeks - Admit for Clinical Observation Score 7 - 10: 72.7% MACE over next 6 weeks - Early Invasive Strategies Course & Med Decision Making: Course & Med Decision Making Pertinent Labs and Imaging studies reviewed. (See chart for details) Discussed presentation, testing and tx . plan with Dr. Pack. Will admit for further eval. COVID test pending. Suspect primary cause of acute hypoxia and hypercarbia-atelectasis.. Hopefully short course increase incentive respiratory effort and treatments will relieve some of the acute changes in his respiratory hypoxia and hypercarbia. Impression: 1. Dyspnea- Acute on Chronic Respiratory Failure - Hypoxia/Hypercarbia, 2. Anemia Hgb. 12.1 3. Hypomagnesium 1.5 4. Dehydration Creat 2.4 5. DM `147 6. Malnutrition Alb. 2.5 7. Constipation 8. Chronic atelectasis-(more on right than left) 9. Bronchitis [] Dragon Disclaimer: Dragon Disclaimer: This electronic medical record was generated, in whole or in part, using a voice recognition dictation system. Departure Departure: Referrals: BRITTNI BACA (PCP) [place] Disclaimer This chart was dictated in whole or in part using Voice Recognition software in a busy, high-work load, and often noisy Emergency Department environment. It may contain unintended and wholly unrecognized errors or omissions. Dragon Disclaimer This chart was dictated in whole or in part using Voice Recognition software in a busy, high-work load, and often noisy Emergency Department environment. It may contain unintended and wholly unrecognized errors or omissions. Dragon Disclaimer This chart was dictated in whole or in part using Voice Recognition software in a busy, high-work load, and often noisy Emergency Department environment. It may contain unintended and wholly unrecognized errors or omissions. ARLETH QUEVEDO MD Sep 01, 2020 20:35
[2020-09-01] MEDS ORDERED: ALBUTEROL SULFATE 8GM INHALER. INH ONE (20:45)
[2020-09-01] MEDS ORDERED: IV RINGERS SOLUTION,LACTATED 1,000 ML IV SCH (20:45)
[2020-09-01] MEDS ORDERED: ASPIRIN CHEWABLE 81 MG TABLET. PO ONE (20:45)
[2020-09-01 21:36] LABS: BASO % 1 % (0-3); EOS # 0.1 x10^3/uL (0.0-0.7); EOS % 1 % (0-3); HEMATOCRIT 38.7 % (39.0-53.0); LYMPH # 1.8 x10^3/uL (1.0-4.8); LYMPH % 25 % (24-48); MEAN CORPUSCULAR HEMOGLOBIN 27 pg (25-35); MEAN CORPUSCULAR HGB CONC 31 g/dL (31-37); MEAN CORPUSCULAR VOLUME 86 fL (79-100); MONO # 0.8 x10^3/uL (0.0-1.1); MONO % 11 % (0-9); NEUT # 4.3 x10^3uL (1.8-7.7); NEUT % 62 % (31-73); PLATELET COUNT 262 x10^3/uL (140-400); RED BLOOD COUNT 4.49 x10^6/uL (4.30-5.70); RED CELL DISTRIBUTION WIDTH 15.3 % (11.5-14.5)
[2020-09-01 21:43] LABS: CALCIUM 8.8 mg/dL (8.5-10.1); CREATININE 2.4 mg/dL (0.7-1.3); GFR 26.6; POTASSIUM 4.2 mmol/L (3.5-5.1)
[2020-09-01 21:55] LABS: ALBUMIN 2.5 g/dL (3.4-5.0); DIRECT BILIRUBIN 0.1 mg/dL (0.0-0.2); MAGNESIUM 1.5 mg/dL (1.8-2.4); TOTAL BILIRUBIN 0.1 mg/dL (0.2-1.0); TOTAL PROTEIN 6.6 g/dL (6.4-8.2)
[2020-09-01 21:58] LABS: BGAS PH 7.4 (7.35-7.46)
--- NOTE | 2020-09-01 22:12 | RAD ---
XR CHEST 1V Clinical History: Reason: dyspnea,hypoxia / Spl. Instructions: / History: Technique: AP view of the chest was obtained at 09/01/2020 9:12 PM. Comparison: January 30, 2020. Findings: The cardiomediastinal silhouette is normal. The pulmonary vasculature is normal. The lungs and pleura l margins are clear. Elevation the right hemidiaphragm was seen previously. Impression: Stable appearance of the chest. Electronically signed by: Roberto Puente III, MD (09/01/2020 10:09 PM) [facility]
--- NOTE | 2020-09-01 22:18 | RAD ---
CT HEAD AND C-SPINE WO Date: 09/01/2020 9:36 PM Clinical Indication: fall, mental status change, pain Comparison: None. Technique: 5 mm axial tomographic images were obtained of the head without contrast. These were view ed on brain and bone windows. Noncontrast CT of the cervical spine was performed. Sagittal and rocha l reformats were performed and evaluated. One or more of the following dose reduction techniques were utilized: Automated exposure control (AEC), Adjustment of mA and/or kV according to patient size, Us e of iterative reconstruction technique such as ASiR, CT scan done according to ALARA and image gentl y/image wisely HEAD FINDINGS: Mild generalized cerebral and cerebellar volume loss. Mild nonspecific periventricular hypoattenuatio n, most commonly seen with chronic small vessel ischemic disease. No intra- or extra-axial mass or fluid collection. No acute hemorrhage. The ventricles are normal in size, shape, and morphology. The gu-white matter junction is normal. The basilar cisterns are paten t. Sphenoid sinus secretions. The visualized portions of the orbits and globes are normal. The mastoid air cells are clear. No aggressive osseous lesion or fracture. CERVICAL SPINE FINDINGS: Postsurgical changes of posterior decompression with posterior instrumentation C3-C6, anterior instru mentation at C3-C5, and interbody spacers at C3-4 and C4-5 Straightening of the cervical lordosis. No acute fracture. No aggressive lytic or blastic osseous les ions. Severe multilevel degenerative disc space height loss. Multilevel spinal canal stenosis secondary to disc protrusions and marginal osteophytes. Multilevel moderate neuroforaminal narrowing secondary to uncovertebral arthrosis. Multilevel moderate to severe facet arthrosis. The thyroid gland is normal. No cervical lymphadenopathy. Bilateral carotid atherosclerosis. The visu alized aerodigestive tract is normal. The visualized portions of the lungs are clear. IMPRESSION: 1. No acute intracranial process. 2. No acute cervical spine fracture. Electronically signed by: Amado Guillermo MD (09/01/2020 10:16 PM) [facility]
[2020-09-01] MEDS ORDERED: ONDANSETRON PF 4 MG/2 ML VIAL. IVP PRN (22:30)
[2020-09-01] MEDS ORDERED: ACETAMINOPHEN 325 MG TABLET PO PRN (22:30)
[2020-09-01] MEDS ORDERED: AZITHROMYCIN 250 MG TABLET. PO ONE (23:00)
[2020-09-01] MEDS ORDERED: MAGNESIUM SULFATE 2GM 50 ML IV ONE (23:00)
[2020-09-01] MEDS ORDERED: IV RINGERS SOLUTION,LACTATED 1,000 ML IV ONE (23:00)
[2020-09-01 23:14] LABS: BILIRUBIN,URINE NEG (NEG); CLARITY,URINE CLEAR; COLOR,URINE YELLOW; GLUCOSE,URINE NEG (NEG); NITRITE,URINE NEG (NEG); UROBILINOGEN,URINE 0.2 mg/dL (0.2 mg/dL)
[2020-09-01 23:15] LABS: BACTERIA,URINE 0 /HPF (0-FEW); SQUAMOUS EPITHELIAL CELL,UR OCC /LPF; WBC,URINE OCC /HPF (0-4)
[2020-09-01 23:17] LABS: AMPHETAMINE/METHAMPHETAMINE NEG (NEG); BARBITURATES NEG (NEG); BENZODIAZEPINES NEG (NEG); CANNABINOIDS NEG (NEG); COCAINE NEG (NEG); METHADONE NEG (NEG); OPIATES NEG (NEG); PHENCYCLIDINE NEG (NEG)
[2020-09-01] MEDS ORDERED: cefTRIAXone SODIUM 1 GM VIAL ONE (23:38)
[2020-09-01] MEDS ORDERED: IV NORMAL SALINE 50ML 50 ML ONE (23:38)
[2020-09-01] MEDS ORDERED: IV NORMAL SALINE 250ML 250 ML ONE (23:52)
[2020-09-01] MEDS ORDERED: AZITHROMYCIN 500 MG VIAL. IV ONE (23:52)
[2020-09-02 00:18] LABS: INFLUENZA A PATIENT NEGATIVE (NEGATIVE); INFLUENZA B PATIENT NEGATIVE (NEGATIVE)
[2020-09-02] MEDS ORDERED: AZITHROMYCIN 500 MG in IV NORMAL SALINE 250ML 250 ML IV ONE (00:30)
[2020-09-02 01:10] VITALS: BP 106/59
[2020-09-02] MEDS: IV RINGERS SOLUTION,LACTATED 1,000 ML IV SCH ×4 (01:20→20:40)
[2020-09-02] MEDS ORDERED: SENN1TAB62 PO (02:12)
[2020-09-02] MEDS ORDERED: FERR325T14 PO (02:12)
[2020-09-02] MEDS ORDERED: MAGN400T5 PO (02:12)
--- NOTE | 2020-09-02 02:55 | EKG ---
[address] [address] Test Date: 2020-09-01 Test Time: 21:04:21 Pat Name: MARLENY MARTINEZ Department: Room: [facility]04 1 Gender: M Valve [employer]r Re[employer]: : 1945 Requested By: ARLETH QUEVEDO Order Number: [id number] Reading MD: Reinier Rojas Measurements Intervals [place] Rate: 74 P: 52 IL: 160 QRS: -11 QRSD: 126 T: -8 QT: 362 QTc: 402 Interpretive Statements SINUS RHYTHM LEFTWARD AXIS RIGHT BUNDLE BRANCH BLOCK QRS(T) CONTOUR ABNORMALITY CONSIDER INFERIOR MYOCARDIAL DAMAGE ABNORMAL ECG Electronically Signed On 09-02-2020 13:39:12 [employer] by Reinier Rojas
[2020-09-02 06:28] LABS: BASO % 0 % (0-3); EOS # 0.1 x10^3/uL (0.0-0.7); EOS % 2 % (0-3); HEMATOCRIT 37.8 % (39.0-53.0); HEMOGLOBIN 11.8 g/dL (13.0-17.5); LYMPH # 1.8 x10^3/uL (1.0-4.8); LYMPH % 31 % (24-48); MEAN CORPUSCULAR HEMOGLOBIN 27 pg (25-35); MEAN CORPUSCULAR HGB CONC 31 g/dL (31-37); MEAN CORPUSCULAR VOLUME 86 fL (79-100); MONO # 0.6 x10^3/uL (0.0-1.1); MONO % 10 % (0-9); NEUT # 3.2 x10^3uL (1.8-7.7); NEUT % 56 % (31-73); PLATELET COUNT 247 x10^3/uL (140-400); RED CELL DISTRIBUTION WIDTH 15.2 % (11.5-14.5); WHITE BLOOD COUNT 5.7 x10^3/uL (4.0-11.0)
[2020-09-02 06:38] LABS: CALCIUM 8.9 mg/dL (8.5-10.1); GFR 32.8; POTASSIUM 4.1 mmol/L (3.5-5.1)
[2020-09-02] MEDS: IPRATRPIUM/ALBUTEROL 0.5/2.5MG 3 ML NEBU. NEB SCH ×4 (08:00→20:00)
[2020-09-02 08:47] VITALS: BP 115/94
[2020-09-02] MEDS: INSULIN GLARGINE SYRINGE. SQ SCH ×2 (09:00→21:19)
[2020-09-02] MEDS: METOPROLOL TART IMMED RELEASE 50 MG TABLET PO SCH ×2 (09:41→21:00)
[2020-09-02] MEDS: FUROSEMIDE 20 MG TABLET PO SCH (09:41)
[2020-09-02] MEDS: APIXABAN 5 MG TABLET. PO SCH ×2 (09:41→21:05)
[2020-09-02 11:16] VITALS: BP 116/47
[2020-09-02 11:21] VITALS: BP 116/47
[2020-09-02] MEDS: INSULIN LISPRO 300 UNITS/3 ML VIAL. SQ SCH ×3 (12:51→17:03)
[2020-09-02] MEDS ORDERED: ACETAMINOPHEN 325 MG TABLET PO PRN (14:30)
[2020-09-02] MEDS ORDERED: oxyCODONE/APAP 5/325 1 TAB TABLET PO PRN (14:30)
[2020-09-02] MEDS ORDERED: SIMETHICONE 80 MG TAB.CHEW PO PRN (14:30)
[2020-09-02] MEDS ORDERED: ALBUTEROL SULFATE 8GM INHALER. INH PRN (15:00)
[2020-09-02] MEDS: oxyCODONE/APAP 5/325 1 TAB TABLET PO PRN ×2 (15:20→21:06)
--- NOTE | 2020-09-02 16:55 | HP ---
ADMIT DATE: 09/02/2020 HISTORY OF PRESENT ILLNESS: The patient is a 75-year-old -Citizen Of [place] male patient, a resident at [facility] [place], who was brought to the Emergency Room with a complaint of fatigue, weakness, fever, cough, productive sputum, and mental status change. In the [facility], the patient is on chronic oxygen at 2 liters when asleep. The patient has been a resident at [facility] since 02/04/2020. He was extensively investigated in the Emergency Room and basically has had an EKG on arrival, which showed that he was in sinus rhythm at 74 beats per minute with right bundle-branch block. His chest x-ray showed the cardiomediastinal silhouette is normal. The pulmonary vasculature is normal. The lungs and pleural margins are clear. Elevation of right hemidiaphragm was seen previously. CT scan of the head and C-spine showed no acute intracranial process and no acute cervical spine fracture. The patient had also lab work including a CBC, CMP, arterial blood gases, urinalysis and urine toxic screen; and his influenza A and B were negative. The patient was admitted with [id number] hypoxic hypercapnic respiratory failure, type 2 diabetes, hypertension, dehydration, hypomagnesemia, and anemia. He was given 2 liters of normal saline and was also treated with Zithromax and ceftriaxone. PAST MEDICAL HISTORY: Significant for chronic hypoxic hypercapnic respiratory failure, oropharyngeal dysphagia, has quadriplegia at C1-C4 incomplete, for which he underwent fusion of the cervical region, cervical spinal stenosis. He has a rotator cuff tear of the right shoulder. He has chronic diastolic congestive heart failure, chronic kidney disease stage 2, benign prostatic hypertrophy, essential hypertension, gastroesophageal reflux disease, hyperlipidemia, neurogenic bowel, and neurogenic bladder. He also had type 2 diabetes mellitus, rotator cuff tear, or rupture of the left shoulder. PAST SURGICAL HISTORY: Significant for cervical spine fusion, appendectomy, and what seems to be a left inguinal hernia repair. ALLERGIES: He has no known drug allergies. MEDICATIONS: He is currently on following medications: He is on cetirizine 10 mg once a day, albuterol sulfate 2 puffs every 4-6 hours, tamsulosin 0.4 mg at bedtime. He is on baclofen 10 mg 3 times a day, ferrous sulfate 325 mg once a day, apixaban 5 mg twice a day, atorvastatin calcium 20 mg at bedtime, metoprolol tartrate 50 mg twice a day, diltiazem 180 mg daily, aspirin 81 mg once a day, oxycodone/APAP 5/325 one tablet every bedtime. He is on oxycodone/APAP 5/325 one tablet every 6 hours as needed, Tylenol 650 mg every 6 hours. He is on gabapentin 600 mg 3 times a day. He is on Veltassa 8.4 grams p.o. daily, furosemide 20 mg daily, budesonide/formoterol fumarate, Symbicort 80/4.5 two puffs twice a day, magnesium oxide 400 mg once a day, simethicone 80 mg every 6 hours, docusate sodium 100 mg daily, Senna-S 1 tablet daily. He is on NovoLog insulin 15 units before meals and Levemir insulin 30 units twice a day, Lidoderm patch applied topically 2 patches topically on for 12 hours and off for 12 hours, melatonin 6 mg at bedtime, polyethylene glycol 17 grams daily. FAMILY HISTORY: Noncontributory. SOCIAL HISTORY: He is apparently and has been a [place] [facility] [place] Used to smoke, drink alcohol, and smoke marijuana. PHYSICAL EXAMINATION: GENERAL: On arrival to the Emergency Room, apparently the patient was in no apparent respiratory distress. No pallor, jaundice, cyanosis or thyromegaly. No jugular venous distention, no limb edema. VITAL SIGNS: His heart rate was 67, blood pressure was 122/49, temperature was 98.6, respiratory rate 12, and oxygen saturation was 98% on 2 liters of oxygen. HEAD, EYES, EARS, NOSE AND THROAT: Showed normocephalic, atraumatic. NECK: Supple. HEART: Showed normal first and second heart sounds. No gallop, rub or murmur. CHEST: Clear to auscultation. No crepitation or rhonchi. I could not appreciate any crepitation or rhonchi anteriorly. ABDOMEN: Distended, soft, nontender. NEUROLOGIC: He is awake, alert, responding appropriately. He has quadriplegia, which is incomplete, and he is able to move his right upper extremity to ____ the left upper extremity. LABORATORY DATA: His lab work on arrival to the Emergency Room showed a white cell count 7000, hemoglobin 12, hematocrit 38, MCV 86, and platelet count 262,000. His chemistry showed that the serum sodium was 141, potassium 4.2, chloride 104, bicarbonate 35, anion gap of 2, BUN 20, creatinine 2.4, estimated GFR was 26 mL per minute. His glucose was 147, calcium was 8.8, and magnesium was 1.5. Total bilirubin, AST, ALT, and alkaline phosphatase were normal. CK was 81. His total protein was 6.6, albumin 2.5. His blood gases showed a pH of 7.40, pCO2 of 46, pO2 of 66, bicarbonate 31, and oxygen saturation was 93% on FiO2 of 28%. His prothrombin time, INR, and aPTT are normal. D-dimer was 0.49. Urinalysis essentially unremarkable and urine toxic screen was negative. His influenza A and B were negative. The chest x-ray showed the cardiomediastinal silhouette is normal. The pulmonary vasculature is normal. The lungs and pleural margins are clear. Elevation of the right hemidiaphragm was seen previously. The CT scan of the head and cervical spine showed no acute intracranial process and no acute cervical spine fracture. ASSESSMENT AND PLAN: The patient was admitted with altered mental status, shortness of breath, likely due to acute on chronic hypoxic hypercapnic respiratory failure. He was found to have hypomagnesemia, acute kidney injury, type 2 diabetes mellitus, malnutrition, chronic constipation. The patient was treated with IV fluid and received also Rocephin and Zithromax in the Emergency Room. I will reconcile all his medication and follow his labs closely. LUIS CARVER MD DR: LEILANI/wendy JOB#: [id number] / [id number]
--- NOTE | 2020-09-02 17:57 | PN ---
DATE: 09/02/2020 SUBJECTIVE: The patient is resting, slightly propped up in bed, in no apparent respiratory distress. He is awake, alert, and responding appropriately. PHYSICAL EXAMINATION: GENERAL: When I examined him, he looked well and was clearly in no apparent respiratory distress. No pallor, jaundice, cyanosis, or thyromegaly. No jugular venous distention. No limb edema. VITAL SIGNS: His heart rate was 74, blood pressure was 109/54, temperature was 98.6, respiratory rate was 10, and oxygen saturation was 98% on room air. HEAD, EYES, EARS, NOSE AND THROAT: Showed normocephalic, atraumatic. NECK: Supple. HEART: Showed normal first and second heart sounds. No gallop or murmur. CHEST: Clear to auscultation. No crepitation or rhonchi. ABDOMEN: Distended, soft, nontender. NEUROLOGIC: He is awake, alert, responding appropriately. All cranial nerves are intact. He has quadriplegia. He is able to move his right upper extremity to much good extent than the left upper extremity. He is mostly bedbound, wheelchair bound. He has an indwelling Sales catheter. His intake and output are incompletely recorded. LABORATORY DATA: His lab work this morning showed a serum sodium 140, potassium 4.1, chloride 104, bicarbonate 32, anion gap of 4, BUN 19, creatinine 2, estimated GFR was 33 mL per minute. His glucose was 139, calcium was 8.9. His white cell count was 5700, hemoglobin 12, hematocrit 38, MCV 86, and platelet count 247,000. ASSESSMENT: 1. Acute on chronic hypoxic respiratory failure. 2. Chronic diastolic congestive heart failure. 3. Hypertension. 4. Hyperlipidemia. 5. Chronic obstructive pulmonary disease. 6. Acute on chronic kidney injury with serum creatinine improving down to 2. PLAN: Plan is to continue with IV fluid. Continue with IV antibiotic in the form of Zithromax and ceftriaxone. I reconciled all his medication. I will follow his labs again tomorrow. LUIS CARVER MD DR: LEILANI/wendy JOB#: [id number] / [id number]
[2020-09-02 20:24] VITALS: BP 96/45
[2020-09-02] MEDS ORDERED: ATORVASTATIN CALCIUM 20 MG TABLET PO SCH (21:00)
[2020-09-02] MEDS ORDERED: AZITHROMYCIN 250 MG TABLET. PO SCH (21:00)
[2020-09-02] MEDS: FLUTICASONE/VILANTEROL 200/25 INHALER. INH SCH (21:00)
[2020-09-02] MEDS ORDERED: MELATONIN 3 MG TABLET PO SCH (21:00)
[2020-09-02] MEDS: DOCUSATE SODIUM 100 MG CAPSULE PO PRN (21:05)
[2020-09-02] MEDS: GABAPENTIN 300 MG CAPSULE. PO SCH (21:05)
[2020-09-02] MEDS: BACLOFEN 10 MG TABLET PO SCH (21:06)
[2020-09-02 23:31] VITALS: BP 95/45
[2020-09-03 05:10] VITALS: BP 101/43
[2020-09-03 06:52] LABS: HEMATOCRIT 34.5 % (39.0-53.0); HEMOGLOBIN 10.8 g/dL (13.0-17.5); RED BLOOD COUNT 3.99 x10^6/uL (4.30-5.70); RED CELL DISTRIBUTION WIDTH 15.1 % (11.5-14.5)
[2020-09-03 06:55] LABS: ALBUMIN/GLOBULIN RATIO 0.5 (1.0-1.7); CALCIUM 8.2 mg/dL (8.5-10.1); CREATININE 1.4 mg/dL (0.7-1.3); GFR 49.5; POTASSIUM 4.2 mmol/L (3.5-5.1); TOTAL BILIRUBIN 0.1 mg/dL (0.2-1.0)
[2020-09-03] MEDS: INSULIN LISPRO 300 UNITS/3 ML VIAL. SQ SCH ×2 (07:30→11:30)
[2020-09-03] MEDS ORDERED: IV RINGERS SOLUTION,LACTATED 1,000 ML IV SCH (08:00)
[2020-09-03] MEDS: DOCUSATE SODIUM 100 MG CAPSULE PO PRN (08:09)
[2020-09-03] MEDS: BACLOFEN 10 MG TABLET PO SCH (08:10)
[2020-09-03] MEDS: GABAPENTIN 300 MG CAPSULE. PO SCH (08:10)
[2020-09-03] MEDS: APIXABAN 5 MG TABLET. PO SCH (08:10)
[2020-09-03] MEDS: oxyCODONE/APAP 5/325 1 TAB TABLET PO PRN (08:11)
[2020-09-03] MEDS: INSULIN GLARGINE SYRINGE. SQ SCH (09:00)
[2020-09-03] MEDS ORDERED: SENNOSIDES/DOCUSATE 8.6/50MG TABLET. PO SCH (09:00)
[2020-09-03] MEDS ORDERED: MAGNESIUM OXIDE 400 MG TABLET PO SCH (09:00)
[2020-09-03] MEDS ORDERED: LIDOCAINE (700MG/PATCH) PATCH. TP SCH (09:00)
[2020-09-03] MEDS ORDERED: ASPIRIN CHEWABLE 81 MG TABLET. PO SCH (09:00)
[2020-09-03] MEDS: FLUTICASONE/VILANTEROL 200/25 INHALER. INH SCH (09:00)
[2020-09-03] MEDS ORDERED: NON FORMULARY ITEM (Patiromer Calcium Sorbitex (Veltassa) 8.4 GM) PO SCH (09:00)
[2020-09-03] MEDS ORDERED: POLYETHYLENE GLYCOL 3350 17 GM PACKET. PO SCH (09:00)
[2020-09-03] MEDS ORDERED: TAMSULOSIN 0.4 MG CAP.ER.24H. PO SCH (09:00)
[2020-09-03] MEDS ORDERED: CETIRIZINE HCL 10 MG TABLET PO SCH (09:00)
[2020-09-03] MEDS ORDERED: FERROUS SULFATE 325 MG TABLET. PO SCH (09:00)
[2020-09-03 12:39] VITALS: BP 126/59
[2020-09-03] MEDS: FUROSEMIDE 20 MG TABLET PO SCH (12:40)
--- NOTE | 2020-09-03 12:49 | DS ---
DATE OF DISCHARGE: 09/03/2020 ATTENDING PHYSICIAN: Dr. Pack. FINAL DISCHARGE DIAGNOSES: 1. Altered mentation, resolved. 2. Probable polypharmacy. 3. Acute on chronic respiratory failure. 4. Quadriplegia due to cervical spine fracture. 5. Type 2 diabetes mellitus. 6. Neurogenic bladder. 7. Chronic obstructive pulmonary disease. 8. Hypertension. 9. Dehydration. 10. Gastroesophageal reflux disease. 11. Dysphagia. 12. Spinal stenosis. 13. Benign prostatic hypertrophy. HISTORY AND PHYSICAL: This 75-year-old gentleman has quadriplegia of the C1-C4 incomplete level for which he underwent fusion of the cervical spine. He also has cervical spinal stenosis. 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 He is also bedridden. He has multiple medications including narcotics. He was admitted with altered mentation. PHYSICAL EXAMINATION: Please see the dictated note. PERTINENT LABORATORY AND X-RAY STUDIES: The obligatory CT of the head demonstrated no acute intracranial process. Chest x-ray remained clear. The cervical spine films showed no new fractures. Postoperative changes, posterior decompression at C3-C6 and interbody spacers C3-C4, C4-C5. COURSE IN THE HOSPITAL: The patient was admitted overnight. He was started on empiric antibiotics. We held his narcotics, he did better. Oxygen saturations were weaned down to baseline and he was back to his baseline the next day. On the day of discharge, his blood pressure and vital signs were quite stable. BP 101/43, pulse was 70 and regular. He was afebrile, oxygen saturation down to 2 liters. Therefore, he is discharged home back to [facility] for continued care. He will continue his albuterol, Eliquis 5 mg b.i.d., calcium, Lipitor daily, baclofen, budesonide, Zyrtec, diltiazem CD, Lasix, Neurontin, insulin regular and Lantus, Lidoderm, melatonin, oxycodone p.r.n., MiraLax and Flomax dose is unchanged. For now, we took liberty of holding his Tylenol, aspirin, docusate, ferrous sulfate, magnesium oxide, senna and simethicone doses. He remains a FULL CODE. His prognosis is fair. He was discharged then from our hospital in stable condition with explicit instructions and followup care at [facility]. TOTAL DISCHARGE TIME SPENT: 39 minutes. AMBER SMITH MD DR: YESENIA/wendy JOB#: [id number] / [id number]
[2020-09-03 15:30] VITALS: BP 101/43
[2020-09-03] MEDS ORDERED: LACTOBACILLUS RHAMNOSUS GG 1 CAPSULE. PO SCH (21:00)
== END 2020-09-03 15:00 ==
LOC: ER 20:30 → INTOOBSV 23:52 → ICU 23:52
PROVIDERS: ADMIT Internal Medicine; ATTEND Internal Medicine
DX: J96.22 Acute and chronic respiratory failure with hypercapnia (principal); Z20.828 Contact with and (suspected) exposure to other viral communicable diseases; J96.21 Acute and chronic respiratory failure with hypoxia; I13.0 Hypertensive heart and chronic kidney disease with heart failure and stage 1 through stage 4 chronic kidney disease, or unspecified chronic kidney disease; I50.32 Chronic diastolic (congestive) heart failure; N18.2 Chronic kidney disease, stage 2 (mild); E11.22 Type 2 diabetes mellitus with diabetic chronic kidney disease; I45.10 Unspecified right bundle-branch block; N17.9 Acute kidney failure, unspecified; J44.9 Chronic obstructive pulmonary disease, unspecified; E83.42 Hypomagnesemia; E46 Unspecified protein-calorie malnutrition; E78.00 Pure hypercholesterolemia, unspecified; R41.82 Altered mental status, unspecified; M19.90 Unspecified osteoarthritis, unspecified site; E78.5 Hyperlipidemia, unspecified; K21.9 Gastro-esophageal reflux disease without esophagitis; M48.02 Spinal stenosis, cervical region; N40.0 Benign prostatic hyperplasia without lower urinary tract symptoms; K59.09 Other constipation; E01.0 Iodine-deficiency related diffuse (endemic) goiter; F12.90 Cannabis use, unspecified, uncomplicated; G82.50 Quadriplegia, unspecified; D64.9 Anemia, unspecified; E86.0 Dehydration; N31.9 Neuromuscular dysfunction of bladder, unspecified; J98.11 Atelectasis; K59.00 Constipation, unspecified; Z79.899 Other long term (current) drug therapy; Z98.890 Other specified postprocedural states; Z86.73 Personal history of transient ischemic attack (TIA), and cerebral infarction without residual deficits; Z87.891 Personal history of nicotine dependence; Z90.49 Acquired absence of other specified parts of digestive tract; Z79.01 Long term (current) use of anticoagulants; Z95.5 Presence of coronary angioplasty implant and graft; Z98.1 Arthrodesis status; Z87.440 Personal history of urinary (tract) infections
CPT/HCPCS: 36415; 36600; 51702; 70450; 71045; 72125; 80048; 80053; 80076; 80307; 81001; 82550; 82803; 82947; 83690; 83735; 83880; 84443; 84484; 85025; 85027; 85379; 85610; 85730; 87040; 87804; 93005; 94640; 96361; 96365; 96366; 96367; 96368; 99285; G0378; J0456; J0696; J1815; J3475; J7050; J7120; U0003; G0379; 94664

== ENCOUNTER 2021-08-21 09:57 | Emergency (ER) | payer MEDICARE ==
[~2021-08-21] VITALS: Ht 182.9 cm; Wt 105.0 kg
[~2021-08-21 09:57] MED LIST changes: +FERR325T14 PO; +MAGN400T48 PO; +SENN1TAB62 PO
[2021-08-21 10:46] LABS: BASO % 1 % (0-3); EOS # 0.1 x10^3/uL (0.0-0.7); EOS % 3 % (0-3); HEMATOCRIT 46.9 % (39.0-53.0); HEMOGLOBIN 14.6 g/dL (13.0-17.5); LYMPH # 1.1 x10^3/uL (1.0-4.8); LYMPH % 22 % (24-48); MEAN CORPUSCULAR HEMOGLOBIN 28 pg (25-35); MEAN CORPUSCULAR HGB CONC 31 g/dL (31-37); MEAN CORPUSCULAR VOLUME 91 fL (79-100); MONO # 0.4 x10^3/uL (0.0-1.1); MONO % 8 % (0-9); NEUT # 3.4 x10^3uL (1.8-7.7); NEUT % 67 % (31-73); PLATELET COUNT 242 x10^3/uL (140-400); RED BLOOD COUNT 5.16 x10^6/uL (4.30-5.70); RED CELL DISTRIBUTION WIDTH 14.7 % (11.5-14.5); WHITE BLOOD COUNT 5.1 x10^3/uL (4.0-11.0)
--- NOTE | 2021-08-21 10:51 | RAD ---
PROCEDURE: XR CHEST 1V.08/21/2021 10:47 AM REASON FOR STUDY: Reason: CHRONIC PNA / Spl. Instructions: BEST IMAGE OBTAINED DUE TO PT CONDITION / History: . COMPARISON: Study of 09/01/2020. FINDINGS: Depth of inspiration is shallow. Right hemidiaphragm remains elevated. There is greater ate lectasis at the right lung base. There may be a small amount of pleural fluid on the left. The upper lungs remain clear. The heart does not appear enlarged. IMPRESSION: Increased right basilar atelectasis. Possible small left effusion. Electronically signed by: Og Ortiz Jr., MD (08/21/2021 10:48 AM) [id number]
[2021-08-21 11:14] LABS: BILIRUBIN,URINE NEG (NEG); CLARITY,URINE HAZY; COLOR,URINE YELLOW; GLUCOSE,URINE 250 mg/dL (NEG); UROBILINOGEN,URINE 0.2 mg/dL (0.2 mg/dL)
[2021-08-21 11:14] LABS: CALCIUM 8.7 mg/dL (8.5-10.1); GFR 32.7; POTASSIUM 5.8 mmol/L (3.5-5.1)
[2021-08-21 11:15] LABS: BACTERIA,URINE 0 /HPF (0-FEW); NITRITE,URINE NEG (NEG); SQUAMOUS EPITHELIAL CELL,UR OCC /LPF; WBC,URINE OCC /HPF (0-4)
[2021-08-21 11:23] LABS: INFLUENZA A PATIENT NEGATIVE (NEGATIVE); INFLUENZA B PATIENT NEGATIVE (NEGATIVE)
[2021-08-21 11:27] LABS: ALBUMIN 2.9 g/dL (3.4-5.0); ALBUMIN/GLOBULIN RATIO 0.7 (1.0-1.7); TOTAL BILIRUBIN 0.3 mg/dL (0.2-1.0); TOTAL PROTEIN 6.8 g/dL (6.4-8.2)
--- NOTE | 2021-08-21 12:37 | RAD ---
RS Compliance Statement: One or more of the following individualized dose reduction techniques were utilized for this examinat ion: 1. Automated exposure control 2. Adjustment of the mA and/or kV according to patient size 3. Use of iterative reconstruction technique CT HEAD WITHOUT CONTRAST History: Reason: ams / Spl. Instructions: / History: Comparison: CT head without contrast, September 01, 2020. Technique: Axial images are obtained of the head from the skull base through the vertex without IV co ntrast. Findings: No mass-effect, midline shift, extra-axial fluid collection, hemorrhage, or obvious acute infarction is identified. Basilar cisterns are patent. The ventricles and sulci are prominent, consistent with age-related cerebral atrophy. There is perive ntricular white matter hypoattenuation. This is a nonspecific finding but is commonly due to chronic small vessel ischemic disease. Bone windows demonstrate no acute calvarial abnormality. There is minimal mucosal thickening in the l eft sphenoid sinus. There is no air-fluid level. Mastoid air cells are well aerated. IMPRESSION: No acute intracranial abnormality. Electronically signed by: Petros Ohara MD (08/21/2021 12:35 PM) [id number]
--- NOTE | 2021-08-21 12:59 | RAD ---
PQRS Compliance Statement: One or more of the following individualized dose reduction techniques were utilized for this examinat ion: 1. Automated exposure control 2. Adjustment of the mA and/or kV according to patient size 3. Use of iterative reconstruction technique CT THORAX WO Clinical Indication: Reason: ams / Comparison: CT chest without contrast January 30, 2020. TECHNIQUE: Helical CT imaging of the chest is performed without contrast. Findings: The thyroid is stable. There is bilateral gynecomastia, worse on the right. Finding is new from prior study. There is no mediastinal adenopathy. Great vessels are normal caliber. There is coronary arter y disease. The cardiac size is normal, no pericardial effusion. There is unchanged moderate elevation of right hemidiaphragm. The central airways are narrow but santana nt. There is respiratory motion artifact. There is mild consolidation in the right lung base that is unchanged from prior study and may be chronic atelectasis or scarring. The visualized upper abdomen is unremarkable. There is degenerative spondylosis of the thoracic spine. The alignment is maintained. IMPRESSION: There is unchanged moderate elevation of the right hemidiaphragm with chronic atelectasis or scarring in the right lung base. Electronically signed by: Petros Ohara MD (08/21/2021 12:57 PM) [id number]
--- NOTE | 2021-08-21 13:03 | PHYS DOC ---
Past History Past Medical History: Anemia, Arthritis, CAD, CHF, COPD, CVA, Diabetes, GERD, High Cholesterol, Hypertension, Renal Disease, UTI Additional Past Medical Histor: Insomnia, Neurogenic BOWEL, neck injury, DYSPHAGIA Past Surgical History: Cervical Fusion Additional Past Surgical Histo: Bilateral shoulder surgery- rotator cuff, cardiac stent Smoking: Quit Greater Than 1 Year Alcohol Use: None Drug Use: None General Adult EDM: Chief Complaint: ALTERED MENTAL STATUS HPI: HPI: Patient is a 76-year-old male brought in from nursing facility for "nodding off". Per the report he typically does this when he gets pneumonia. Has a history of CHF and COPD per patient's records provided. No fevers. Review of Systems: Review of Systems: All other systems within normal limits except for as noted in the HPI Allergies: Allergies: Allergies Coded Allergies Type Severity Reaction Last Updated Verified I S O L A T I O N *CONTACT* Allergy Unknown 02/01/20 Yes NKMA Allergy Unknown 02/01/20 Yes Physical Exam: PE: Constitutional: Well developed, well nourished, no acute distress, non-toxic appearance. [] HENT: Normocephalic, atraumatic, bilateral external ears normal, oropharynx moist, no oral exudates, nose normal. [] Eyes: PERRLA, EOMI, conjunctiva normal, no discharge. [] Neck: Normal range of motion, no tenderness, supple, no stridor. [] Cardiovascular:Heart rate regular rhythm, no murmur [] Lungs & Thorax: Bilateral breath sounds clear to auscultation [] Abdomen: Bowel sounds normal, soft, no tenderness, no masses, no pulsatile masses. [] Skin: Warm, dry, no erythema, no rash. [] Back: No tenderness, no CVA tenderness. [] Extremities: No tenderness, no cyanosis, no clubbing, ROM intact, no edema. [] Neurologic: Alert and oriented X 3, normal motor function, normal sensory function, no focal deficits noted. [] Psychologic: Affect normal, judgement normal, mood normal. [] Current Patient Data: Labs: Laboratory Tests Test 08/21/21 10:20 08/21/21 10:33 08/21/21 10:45 08/21/21 10:50 White Blood Count 5.1 x10^3/uL (4.0-11.0) Red Blood Count 5.16 x10^6/uL (4.30-5.70) Hemoglobin 14.6 g/dL (13.0-17.5) Hematocrit 46.9 % (39.0-53.0) Mean Corpuscular Volume 91 fL (79-100) Mean Corpuscular Hemoglobin 28 pg (25-35) Mean Corpuscular Hemoglobin Concent 31 g/dL (31-37) Red Cell Distribution Width 14.7 % (11.5-14.5) H Platelet Count 242 x10^3/uL (140-400) Neutrophils (%) (Auto) 67 % (31-73) Lymphocytes (%) (Auto) 22 % (24-48) L Monocytes (%) (Auto) 8 % (0-9) Eosinophils (%) (Auto) 3 % (0-3) Basophils (%) (Auto) 1 % (0-3) Neutrophils # (Auto) 3.4 x10^3uL (1.8-7.7) Lymphocytes # (Auto) 1.1 x10^3/uL (1.0-4.8) Monocytes # (Auto) 0.4 x10^3/uL (0.0-1.1) Eosinophils # (Auto) 0.1 x10^3/uL (0.0-0.7) Basophils # (Auto) 0.0 x10^3/uL (0.0-0.2) Sodium Level 139 mmol/L (136-145) Potassium Level 5.8 mmol/L (3.5-5.1) H Chloride Level 102 mmol/L (98-107) Carbon Dioxide Level 31 mmol/L (21-32) Anion Gap 6 (6-14) Blood Urea Nitrogen 33 mg/dL (8-26) H Creatinine 2.0 mg/dL (0.7-1.3) H Estimated GFR (Cockcroft-Gault) 32.7 BUN/Creatinine Ratio 17 (6-20) Glucose Level 332 mg/dL (70-99) H Lactic Acid Level 1.0 mmol/L (0.4-2.0) Calcium Level 8.7 mg/dL (8.5-10.1) Total Bilirubin 0.3 mg/dL (0.2-1.0) Aspartate Amino Transferase (AST) 12 U/L (15-37) L Alanine Aminotransferase (ALT) 18 U/L (16-63) Alkaline Phosphatase 123 U/L (46-116) H Ammonia < 10 mcmol/L (11-34) L Troponin I High Sensitivity 13 ng/L (4-75) XJ-Fmq-[id number]-Type Natriuretic Peptide 443 pg/mL (0-449) Total Protein 6.8 g/dL (6.4-8.2) Albumin 2.9 g/dL (3.4-5.0) L Albumin/Globulin Ratio 0.7 (1.0-1.7) L POC Venous pH 7.34 (7.32-7.42) POC Venous pCO2 58 mmHg (41-51) H POC Venous pO2 55 mmHg (20-40) H Venous Blood HCO3 32 mmol/L (24-28) H POC Venous O2 Saturation (Sriram) 86 % POC FiO2 32 Influenza Type A (Rapid) Negative (NEGATIVE) Influenza Type B (Rapid) Negative (NEGATIVE) SARS-CoV-2 Antigen (Rapid) Negative (NEGATIVE) Urine Collection Type Unknown Urine Color Yellow Urine Clarity Hazy Urine pH 5.5 Urine Specific [place] 1.020 Urine Protein Neg (NEG-TRACE) Urine Glucose (UA) 250 mg/dL (NEG) Urine Ketones (Stick) Neg mg/dL (NEG) Urine Blood Mod (NEG) Urine Nitrite Neg (NEG) Urine Bilirubin Neg (NEG) Urine Urobilinogen Dipstick 0.2 mg/dL (0.2 mg/dL) Urine Leukocyte Esterase Neg (NEG) Urine RBC 11-20 /HPF (0-2) Urine WBC Occ /HPF (0-4) Urine Squamous Epithelial Cells Occ /LPF Urine Bacteria 0 /HPF (0-FEW) Vital Signs: Vital Signs Date Time Temp Pulse Resp B/P (MAP) Pulse Ox O2 Delivery O2 Flow Rate FiO2 08/21/21 12:32 99 BiPAP/CPAP 08/21/21 11:31 59 20 120/61 (80) 4.0 08/21/21 10:00 98.2 EKG: EKG: Sinus rhythm, heart rate 60 bpm, normal axis, no ST elevation depression, no ectopy. [] Radiology/Procedures: Radiology/Procedures: [address] [address] IMAGING REPORT Signed PATIENT: MARLENY MARTINEZ ACCOUNT: [id number] : 1945 LOCATION: ER AGE: 76 SEX: M EXAM STATUS: REG ER ORD. PHYSICIAN: GABRIEL GAMA MD REASON: ams PROCEDURE: CT HEAD WO CONTRAST PQRS Compliance Statement: One or more of the following individualized dose reduction techniques were utilized for this examination: 1. Automated exposure control 2. Adjustment of the mA and/or kV according to patient size 3. Use of iterative reconstruction technique CT HEAD WITHOUT CONTRAST History: Reason: ams / Spl. Instructions: / History: Comparison: CT head without contrast, September 01, 2020. Technique: Axial images are obtained of the head from the skull base through the vertex without IV contrast. Findings: No mass-effect, midline shift, extra-axial fluid collection, hemorrhage, or obvious acute infarction is identified. Basilar cisterns are patent. The ventricles and sulci are prominent, consistent with age-related cerebral atrophy. There is periventricular white matter hypoattenuation. This is a nonspecific finding but is commonly due to chronic small vessel ischemic disease. Bone windows demonstrate no acute calvarial abnormality. There is minimal mucosal thickening in the left sphenoid sinus. There is no air-fluid level. Mastoid air cells are well aerated. IMPRESSION: No acute intracranial abnormality. Electronically signed by: Petros Ohara MD (08/21/2021 12:35 PM) [id number] DICTATED AND SIGNED BY: PETROS OHARA MD DATE: 08/21/21 1232 CC: GABRIEL GAMA MD; JOANNA BACA ~MTH0 [address] [address] IMAGING REPORT Signed PATIENT: MARLENY MARTINEZ ACCOUNT: [id number] : 1945 LOCATION: ER AGE: 76 SEX: M EXAM STATUS: REG ER ORD. PHYSICIAN: GABRIEL GAMA MD REASON: ams PROCEDURE: CT CHEST WO CONTRAST PQRS Compliance Statement: One or more of the following individualized dose reduction techniques were utilized for this examination: 1. Automated exposure control 2. Adjustment of the mA and/or kV according to patient size 3. Use of iterative reconstruction technique CT THORAX WO Clinical Indication: Reason: ams / Comparison: CT chest without contrast January 30, 2020. TECHNIQUE: Helical CT imaging of the chest is performed without contrast. Findings: The thyroid is stable. There is bilateral gynecomastia, worse on the right. Finding is new from prior study. There is no mediastinal adenopathy. Great vessels are normal caliber. There is coronary artery disease. The cardiac size is normal, no pericardial effusion. There is unchanged moderate elevation of right hemidiaphragm. The central airways are narrow but patent. There is respiratory motion artifact. There is mild consolidation in the right lung base that is unchanged from prior study and may be chronic atelectasis or scarring. The visualized upper abdomen is unremarkable. There is degenerative spondylosis of the thoracic spine. The alignment is maintained. IMPRESSION: There is unchanged moderate elevation of the right hemidiaphragm with chronic atelectasis or scarring in the right lung base. Electronically signed by: Petros Ohara MD (08/21/2021 12:57 PM) [id number] DICTATED AND SIGNED BY: PETROS OHARA MD DATE: 08/21/21 1250 CC: GABRIEL GAMA MD; JOANNA BACA ~MTH0 0 [] Heart Score: C/O Chest Pain: N/A HEART Score for Chest Pain: HEART Score for Chest Pain Response (Comments) Value History Slighlty/Non-Suspicious 0 ECG Nonspecific Repolarizatio 1 Age > 65 2 Risk Factors 1 or 2 Risk Factors 1 Troponin < Normal Limit 0 Total 4 Risk Factors: Risk Factors: DM, Current or recent (<one month) smoker, HTN, HLP, family history of CAD, obesity. Risk Scores: Score 0 - 3: 2.5% MACE over next 6 weeks - Discharge Home Score 4 - 6: 20.3% MACE over next 6 weeks - Admit for Clinical Observation Score 7 - 10: 72.7% MACE over next 6 weeks - Early Invasive Strategies Course & Med Decision Making: Course & Med Decision Making Pertinent Labs and Imaging studies reviewed. (See chart for details) Patient with O2 sats on arrival. Does not typically use home oxygen. Placed on BiPAP with improvement. Patient pulled off BiPAP in the emergency department on his own. Oxygen saturation remained in the mid 90s so it remained off. Patient stating he feels much better and is more alert and responsive. Patient stating he wants to go back home to his facility. Given first dose of steroid and antibiotic in the emergency department. Patient did have a couple episodes while he was sleeping and snoring and O2 saturation dropped to the mid to upper 80s but quickly returned up to the 90s. [] Dragon Disclaimer: Dragon Disclaimer: This electronic medical record was generated, in whole or in part, using a voice recognition dictation system. Departure Departure: Impression: Primary Impression: COPD exacerbation Disposition: HOME / SELF CARE / HOMELESS Condition: STABLE Referrals: JOANNA BACA (PCP) Additional Instructions: Follow-up with your primary care provider for evaluation of possible sleep apnea. 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 You will starting your next dose tomorrow. Prov: GABRIEL GAMA MD 08/21/21 Levofloxacin (LEVOFLOXACIN) 750 Mg Tablet 1 TAB PO DAILY for antibiotic, #7 TAB Prov: GABRIEL GAMA MD 08/21/21 GABRIEL GAMA MD Aug 21, 2021 13:03
[2021-08-21] MEDS ORDERED: IV NORMAL SALINE 1,000ML 1,000 ML IV ONE (13:15)
[2021-08-21] MEDS ORDERED: IPRATRPIUM/ALBUTEROL 0.5/2.5MG 3 ML NEBU. ONE (13:45)
[2021-08-21] MEDS ORDERED: PRED50TA PO (16:12)
[2021-08-21] MEDS ORDERED: LEVO750T5 PO (16:12)
[2021-08-21] MEDS ORDERED: levoFLOXacin 750 MG TABLET PO ONE (16:15)
[2021-08-21 17:03] VITALS: BP 136/59
--- NOTE | 2021-08-22 06:59 | EKG ---
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
== END 2021-08-21 17:20 | disposition home or self-care (01) ==
LOC: ER 09:57
DX: J44.1 Chronic obstructive pulmonary disease with (acute) exacerbation (principal); I11.0 Hypertensive heart disease with heart failure; I50.9 Heart failure, unspecified; J44.9 Chronic obstructive pulmonary disease, unspecified; E11.9 Type 2 diabetes mellitus without complications; K21.9 Gastro-esophageal reflux disease without esophagitis; E78.5 Hyperlipidemia, unspecified; Z87.891 Personal history of nicotine dependence; Z86.73 Personal history of transient ischemic attack (TIA), and cerebral infarction without residual deficits; Z20.822 Contact with and (suspected) exposure to COVID-19
CPT/HCPCS: 70450; 71045; 71250; 80053; 81001; 82140; 82803; 83605; 83880; 84484; 85025; 87040; 87426; 87804; 93005; 94640; 94660; 96360; 96361; 99285; C9803; J7030; U0003